=== PATIENT | female | born 1975 | race Caucasian/White ===

== ENCOUNTER → 2017-12-25 19:00 | Outpatient (CLI) | payer OTHER, SELFPAY | PROVIDERS: Visit Provider Family Medicine | DX: N39.0 Urinary tract infection, site not specified (principal) | CPT/HCPCS: 87086; 87088 ==

== ENCOUNTER → 2018-01-07 19:18 | Outpatient (CLI) | payer OTHER, SELFPAY ==
[2018-01-11 10:16] LABS: HPV APTIMA, High Risk Negative (Negative)
== END ==
PROVIDERS: Visit Provider Nurse Practitioner Women's Health
DX: Z12.4 Encounter for screening for malignant neoplasm of cervix (principal)
CPT/HCPCS: 88175; G0145

== ENCOUNTER → 2018-02-06 17:23 | Outpatient (CLI) | payer OTHER, SELFPAY ==
--- NOTE | 2018-02-06 | EMB_PTH ---
PATIENT: NURA ORTIZ LOC: [facility] U#:[id number] AGE/SX: 49/F ROOM: RE02/06/[address]: UNIQUE Conway : 1975 BED: DIS: SPEC #: [id number] RECD: 02/06/18 17:05 STATUS: MAHI CHRIS #: [id number] NELSON: 02/06/18 00:[address]: Jovanna Gutierrez NP DEPT: SURGICAL PATHOLOGY RECD BY: Foster Cornelius Tissues: Endometrium, NOS Procedures: Surgery Specimen Level IV HEADER OPERATION: Endometrial biopsy PRE-OP DIAGNOSIS: Abnormal uterine bleeding TISSUE SUBMITTED: Endometrium MICROSCOPIC DIAGNOSIS Endometrial biopsy: Secretory endometrium. DINORAH:ange 02/10/18 MICROSCOPIC DESCRIPTION Slides are reviewed. GROSS DESCRIPTION Received is one container labeled with the patient's name and not further designated. The specimen consists of multiple irregular fragments of pink-red soft tissue that in aggregate measure 3 x 2.5 x 0.2 cm. The entire specimen is submitted in one cassette. / DINORAH:ange 02/09/18 TC:4 CPT: 76219
== END ==
PROVIDERS: Visit Provider Nurse Practitioner Women's Health
DX: N93.9 Abnormal uterine and vaginal bleeding, unspecified (principal)
CPT/HCPCS: 88305

== ENCOUNTER → 2018-02-11 13:56 | Outpatient (CLI) | payer OTHER, SELFPAY ==
--- NOTE | 2018-02-11 13:58 | BI_ITS ---
MAMMOGRAPHY - BILATERAL SCREENING REASON FOR EXAM: Female, 42 years old. Routine annual screening examination. PERTINENT HISTORY: Non-contributory. Lateral breast tenderness. TECHNIQUE: Digital bilateral breast arsalan (3D mammographic acquisition) in the CC and MLO projections. 2-D mediolateral oblique (MLO) and craniocaudad (CC) views of both breasts were obtained. CAD: Full Field Digital Mammography with Computer Added Detection was performed. COMPARISON: Comparison is made with prior examination in August 01, 2014. FINDINGS: Breast Composition: The breasts are heterogeneously dense, which may obscure small masses. There are no dominant masses or suspicious calcifications. Stable small bilateral benign appearing axillary lymph nodes. No other significant abnormalities are identified. There has been no significant change since the prior study. BI/SCREENING MAMM (CAD), BILAT IMPRESSION: Stable bilateral screening mammogram. Yearly follow-up mammogram recommended. (A) ASSESSMENT CATEGORY: BIRADS Category 2: Benign. A letter regarding these results will be sent to the patient by the facility within 30 days. Approximately 10% of breast cancers are not detected by mammography. A normal mammogram should not delay biopsy of a clinically suspicious abnormality. [id number] Electronically Signed: Kvng Brumfield MD at 8:53 EDT Tel [phone], Service support ,
== END ==
PROVIDERS: PCP Family Medicine; Visit Provider Nurse Practitioner Women's Health
DX: Z12.31 Encounter for screening mammogram for malignant neoplasm of breast (principal)
CPT/HCPCS: 77063; 77067

== ENCOUNTER → 2018-05-13 09:32 | Outpatient (CLI) | payer OTHER, SELFPAY ==
--- NOTE | 2018-05-13 09:34 | US_ITS ---
STUDY: ULTRASOUND BREAST - RIGHT REASON FOR EXAM: Female, 42 years old. Right breast palpable lump. TECHNIQUE: Axial and longitudinal images of the RIGHT breast were performed with a high resolution ultrasound transducer. COMPARISON: No prior breast ultrasound imaging available. Correlation mammograms same day 05/13/2018, 02/11/2018 and 08/01/2014. FINDINGS: RIGHT Breast: There is a lesion in the Upper Outer quadrant. The lesion measures 2.8 x 3.6 x 0.7 cm in size. Clock notation: 9 o'clock position. Distance from nipple: 3.0 cm. Posterior Shadowing: None Margins: Smooth, indistinct Echogenicity: Heterogeneous with slightly increased echogenicity relative adjacent breast tissue adjacent. Compression effect on Shape: No change identified. Minimal internal color Doppler signal is noted. Color Doppler signal is associated vessels along the inferior posterior margin as well. US/Breast Limited Unilateral IMPRESSION: Right breast upper outer quadrant anterior third heterogeneous slightly hyperechoic mass, may represent lipoma but cannot exclude malignancy. Recommend biopsy for further evaluation, should be amenable to ultrasound-guided biopsy as clinically indicated. ASSESSMENT CATEGORY: BIRADS Category 4: Suspicious - Biopsy Should Be Considered. A letter regarding these results will be sent to the patient by the facility within 30 days. Electronically Signed: Alfonso Gentry, at 12:59 EDT Tel , Service support ,
--- NOTE | 2018-05-13 09:40 | BI_ITS ---
MAMMOGRAPHY -DIAGNOSTIC RIGHT MAMMOGRAM REASON FOR EXAM: Female, 42 years old. Right breast palpable lesion x1 month. PERTINENT HISTORY: Right breast lump x1 month with bruising on the surface, marked with triangle. No known injury. TECHNIQUE: Digital diagnostic right breast arsalan (3D mammographic acquisition) in the CC and MLO projections. 2-D mediolateral oblique (MLO) and craniocaudad (CC) views of the right breast were obtained. CAD: Full Field Digital Mammography with Computer Added Detection was performed. COMPARISON: 02/11/2018, 08/01/2014 mammograms. FINDINGS: Breast Composition: The breasts are heterogeneously dense, which may obscure small masses. In the area of clinical concern in the right breast upper outer quadrant anterior third marked by a triangular marker is a set of faint oval somewhat lobulated well-demarcated fairly smooth margin mass densities x2 again seen which appears unchanged but with spot compression views in the CC and ML injections shows persistence. With arsalan synthesis, same lesions are also noted and show smooth lobulated margins. No architectural distortion, asymmetric density, abnormal microcalcification cluster, dominant mass, adenopathy, skin thickening or nipple retraction identified. BI/DIAG MAMM W/CAD, UNILAT IMPRESSION: Incompletely right mammogram. Additional imaging with ultrasound recommended. ASSESSMENT CATEGORY: BIRADS Category 0-additional imaging Approximately 10% of breast cancers are not detected by mammography. A normal mammogram should not delay biopsy of a clinically suspicious abnormality. Electronically Signed: Alfonso Rinaldi, at 13:12 EDT Tel , Service support ,
== END ==
PROVIDERS: PCP Family Medicine; Visit Provider Nurse Practitioner Women's Health
DX: N63.11 Unspecified lump in the right breast, upper outer quadrant (principal)
CPT/HCPCS: 76642; 77061; 77065; G0279

== ENCOUNTER → 2018-05-20 13:35 | Outpatient (CLI) | payer OTHER, SELFPAY ==
--- NOTE | 2018-05-20 | IMM_PTH ---
PATIENT: NURA ORTIZ LOC: [facility] U#:[id number] AGE/SX: 49/F ROOM: RE05/20/[address]: Dr. Chary Christiansen MD : 1975 BED: DIS: SPEC #: [id number] RECD: 05/22/18 14:51 STATUS: MAHI RELilly #: [id number] NELSON: 05/20/18 00:[address]: Chary Christiansen DEPT: IMMUNOHISTOCHEMISTRY RECD BY: Amber Clark ENTERED: 05/22/18 14:52 SP TYPE: IMMUNO OTHR DR: Dr. Jose Roberto Sanchez MD Tissues: Right breast, NOS Procedures: CD31 (initial) SMA (add) CALPONIN-1 (add) CK8 (add) FACTOR VIII (add) [facility] [address] [address] SPECIMEN INFORMATION: Tissue Source: Right breast lesion Clinical Info: Right breast lesion Specimen Number: [id number] CPT code: 69345, 46278 x4 METHODOLOGY: Deparaffinized sections of prefer/formalin-fixed tissue or PAP/DQ stained slides are incubated with monoclonal/polyclonal antibodies/oligonucleotide probes. Localization is made via biotin free immunoperoxidase method. Appropriate controls are performed and reacted as expected. Results on target cell population are indicated in the following table: RESULTS: ANTIBODY / CLONE RESULT CD31 (JOLIE/70A) positive Factor VIII (R Ag) positive Actin (1A4) positive Calponin-1 (HC814J) negative CK8 (68obsbS50) negative These tests were developed and their performance characteristics determined by [facility]. They may not have been cleared or approved by the U.S. Food and Drug Administration. The FDA has determined that such clearance or approval is not necessary. INTERPRETATION: Right breast lesion, biopsy: Benign vascular proliferation consistent with hemangioma. Benign breast parenchyma. SJ:ange 05/25/18
--- NOTE | 2018-05-20 14:00 | BRBX_PTH ---
PATIENT: NURA ORTIZ LOC: [facility] U#:[id number] AGE/SX: 49/F ROOM: RE05/20/[address]: Dr. Chary Christiansen MD : 1975 BED: DIS: SPEC #: [id number] RECD: 05/20/18 15:22 STATUS: MAHI CHRIS #: [id number] NELSON: 05/20/18 14:[address]: Chary Christiansen DEPT: SURGICAL PATHOLOGY RECD BY: Foster Cornelius ENTERED: 05/21/18 10:05 SP TYPE: BREAST BX OTHR DR: Dr. Jose Roberto Sanchez MD Tissues: Right breast, NOS Procedures: Surgery Specimen Level IV HEADER OPERATION: Breast biopsy, right PRE-OP DIAGNOSIS: Breast lesion, ? lipoma or ? hematoma TISSUE SUBMITTED: Breast lesion, right 9 o?clock, 3 cm Ischemic time: 1 minute Fixation time: 5.5 hours MICROSCOPIC DIAGNOSIS Right breast lesion at 9 o?clock, core biopsy: Benign vascular neoplasm, consistent with hemangioma. Focal fat necrosis. Benign breast parenchyma. Negative for malignancy. AM:ange 05/22/18 COMMENT Immunohistochemistry ([id number]) supports the above diagnosis. Correlation with clinical, radiologic findings and appropriate follow up are necessary. This case has been reviewed in consultation with Dr. Cerda who concurs with the above diagnosis. MICROSCOPIC DESCRIPTION Slides are reviewed. GROSS DESCRIPTION Received in fixative is one container labeled with the patient's name and designated right breast. The specimen consists of multiple elongated fragments of brink-yellow fibroadipose tissue that in aggregate measure 2 x 1 x 0.1 cm. The entire specimen is submitted in one cassette. / SJ:ange 05/21/18 TC:1 CPT: 69187
--- NOTE | 2018-05-20 14:26 | PCM.OP.BLANK ---
Operative Report Date of Procedure: 05/20/18 Procedure: ultrasound-guided core biopsy Indications: 42 year-old female with hyperechoic nodule at 9:00 in the right breast 3 centimeters from the nipple, possible lipoma or hematoma. Risk benefits were discussed the patient and she elected to proceed with ultrasound guided core biopsy with clip placement Description of procedure: Patient was brought into the ultrasound room in the right breast was marked. A timeout was completed verifying correct patient, procedure, site, specially, prior to beginning procedure. The right breast was prepped and draped in usual sterile fashion and using local anesthesia was obtained with 1% lidocaine with epi. The lesion was located with the ultrasound. Small incision was made with 11 blade to introduced the mammotome through the skin. Under ultrasound guidance multiple core samples were obtained using then 13-gauge mammotome and sent in formalin for pathology. The mammotome mammostar clip was then deployed into the biopsy cavity under ultrasound guidance and a picture was taken. Upon completion procedure hemostasis was obtained and a Steri-Strip and OpSite were placed. Patient was then taken to the mammography suite for clip verification. The clip was verified. The patient tolerated the procedure well and was discharged from the breast imaging department good condition. complications: none
== END ==
PROVIDERS: Family Provider Family Medicine; PCP Family Medicine; Visit Provider Surgery
DX: N63.11 Unspecified lump in the right breast, upper outer quadrant (principal)
CPT/HCPCS: 19083; 77065; 88305; 88341; 88342

== ENCOUNTER → 2018-09-10 13:38 | Outpatient (CLI) | payer OTHER, SELFPAY ==
--- NOTE | 2018-09-10 13:41 | US_ITS ---
STUDY: RENAL ULTRASOUND - COMPLETE REASON FOR EXAM: Female, 42 years old. Urinary tract infection TECHNIQUE: Ultrasound evaluation of the kidneys was performed with real-time and static merritt-scale imaging. COMPARISON: None. FINDINGS: RIGHT KIDNEY: Normal location of the right kidney, which is normal in size. The right kidney measures 10.5 x 5.3 x 5.6 cm. There is a normal cortex of the right kidney. The renal cortex measures 1.3 cm. There is a 1 cm cyst midpole. There are no right renal calculi. There is no right hydronephrosis. DISTAL RIGHT URETER: There is non-visualization of the distal right ureter. There is no demonstrated right ureterovesical junction calculus. There is a visualized right ureteral jet. LEFT KIDNEY: Normal location of the left kidney, which is normal in size. The left kidney measures 11 x 4.3 x 4.7 cm. There is a normal cortex of the left kidney. The renal cortex measures 1.3 cm. There is a 7 mm cyst in the midpole. There are no left renal calculi. There is no left hydronephrosis. DISTAL LEFT URETER: There is non-visualization of the distal left ureter. There is no demonstrated left ureterovesical junction calculus. There is a visualized left ureteral jet. AORTA: There is no elongation or tortuosity of the abdominal aorta. BLADDER: Urinary bladder volume is 235 cc. Postvoid residual volume is 32 cc. US/Kidney and Bladder IMPRESSION: There bilateral kidney cysts. There are NO stones. There is NO hydronephrosis. Kidneys are normal in size, configuration, location, and echotexture. Electronically Signed: Tenzin Mayberry MD at 7:11 EST , Service support ,
== END ==
PROVIDERS: Family Provider Family Medicine; PCP Family Medicine; Referring Provider Urology; Visit Provider Urology
DX: N39.0 Urinary tract infection, site not specified (principal)
CPT/HCPCS: 76770

== ENCOUNTER → 2019-06-30 07:22 | Outpatient (CLI) | payer OTHER, SELFPAY ==
--- NOTE | 2019-06-30 07:25 | BI_ITS ---
MAMMOGRAPHY - BILATERAL SCREENING REASON FOR EXAM: Female, 43 years old. Routine annual screening examination. PERTINENT HISTORY: Non-contributory. Prior ultrasound-guided right breast biopsy. TECHNIQUE: Digital bilateral breast jai (3D mammographic acquisition) in the CC and MLO projections. 2-D mediolateral oblique (MLO) and craniocaudad (CC) views of both breasts were obtained. CAD: Full Field Digital Mammography with Computer Added Detection was performed. COMPARISON: Comparison is made with prior examination dated February 11, 2018 and May 13, 2018. FINDINGS: Breast Composition: The breasts are heterogeneously dense, which may obscure small masses. There are no dominant masses or suspicious calcifications. A tissue clip marker is seen in the anterior upper lateral portion of the right breast. Stable appearance of the bilateral axillary lymph nodes. No other significant abnormalities are identified. There has been no significant change since the prior study. BI/SCREEN MAMM (CAD) W/JAI BILAT IMPRESSION: Stable bilateral screening mammogram. Yearly follow-up mammogram recommended. (A) ASSESSMENT CATEGORY: BIRADS Category 2: Benign. A letter regarding these results will be sent to the patient by the facility within 30 days. Approximately 10% of breast cancers are not detected by mammography. A normal mammogram should not delay biopsy of a clinically suspicious abnormality. [id number] Electronically Signed: Kvng Brumfield, at 8:59 EDT , Service support ,
== END ==
PROVIDERS: Family Provider Family Medicine; PCP Family Medicine; Referring Provider Nurse Practitioner Women's Health; Visit Provider Nurse Practitioner Women's Health
DX: Z12.31 Encounter for screening mammogram for malignant neoplasm of breast (principal)
CPT/HCPCS: 77063; 77067

== ENCOUNTER 2019-10-29 16:20 | Emergency (ER) | payer OTHER, SELFPAY ==
[2019-10-29 16:21] VITALS: BP 145/66; PULSE 123; RESP 18; TEMP 37.7; O2SAT 100; BMI 40.8
--- NOTE | 2019-10-29 16:47 | ED.VIS.GEN ---
History of Present Illness Chief Complaint: Fever Informant: Patient Onset: Yesterday Narrative: Patient here with skin of her for evaluation fever started yesterday, T-max 100.5 orally this morning. No medications taken. Discussed myalgias. No cough. No vomiting or diarrhea. No urinary symptoms. She is currently being treated for left breast abscess day 6 on Bactrim twice a day. Started urgent care. Denies any pain or drainage states erythema is actually improving started out the size of a silver dollar now much smaller. Denies any asthma history of any significant past medical history. Prior similar symptoms: No Past Medical History - Allergies and Home Meds Allergies/Adverse Reactions: Allergies morphine Allergy (Verified 10/29/19 16:20) Hives Penicillins [PCN] Allergy (Verified 10/29/19 16:20) Unknown Primary Care Physician: German Sanchez MD [Primary Care Provider] - Smoking Status: Current some day smoker Review of Systems General: Reports: Fever. Denies: Chills, Sweats Eyes: Denies: Visual changes - bilaterally, Diplopia ENT: Denies: Rhinorrhea, Sore throat Cardiovascular: Denies: Chest pain, Palpitations Respiratory: Denies: Dyspnea, Cough, Dyspnea on exertion Gastrointestinal: Denies: Abdominal pain, Nausea, Vomiting, Diarrhea, Melena, Hematochezia Genitourinary: Denies: Dysuria, Hematuria, Frequency Musculoskeletal: Denies: Back pain, Extremity Pain Skin: Denies: Rash, Wounds Neurological: Denies: Headache, Weakness, Numbness Physical Exam Vital Signs/Narrative: Vital Signs Temp Pulse Resp BP Pulse Ox 10/29/19 16:21 99.8 F H 123 H 18 145/66 H 100 Inital Vital Signs reviewed: Yes General: Well nourished, Well developed, No Acute Distress Head: Normocephalic, Atraumatic Eyes: Perrl, EOMI ENT: Moist mucous membranes, No rhinorrhea, TM's clear Neck: Supple, Nontender Cardiovascular: Regular rate, Regular rhythm, No murmurs Respiratory: No distress, CTA bilaterally, Chest nontender Abdomen: Soft, Nontender, Nondistended, Normal bowel sounds Back: Nontender, Normal Inspection Extremities: Nontender, No edema Skin: Normal color, No rash, - - Left breast with nursing present, small lesion less than dime size minimal fluctuance, no surrounding erythema or any active drainage, nontender. Neurological: Alert, Oriented x3, Cranial nerves II-XII grossly intact, Normal Strength, Normal Sensation Psychological: Normal affect, Normal Mood Diagnostic/Tx/Re-eval - Medical Decision Making Patient vitals stable, temperature is elevated 99.9. Patient nontoxic. Patient's history reporting her breast significantly improving in size with no surrounding erythema, this is not likely correlating. With the time the year with illnesses discussed possible early influenza symptoms with her symptoms. She has no comorbidities warrant any treatment. Discussed symptomatic treatment at this time. Patient will finish her antibiotics, she will continue oral hydration at home, Tylenol Motrin as needed. All questions were answered. ED Disposition - Plan for ED Patient: Disposition: Home or Assisted Living Diagnosis: Viral illness Instructions: VIRAL SYNDROME (Adult) Referrals: German Sanchez MD [Primary Care Provider] - 3-5 Days if not improving Additional Instructions: Finish your antibiotics, Tylenol and Motrin as needed for fevers. viral syndrome at this time.
[2019-10-29 16:52] VITALS: BP 112/46; PULSE 100; PULSE 102; RESP 16; TEMP 37.7; O2SAT 100; O2SAT 99
[2019-10-29 17:40] VITALS: BP 110/54; PULSE 105; RESP 14; O2SAT 98
== END 2019-10-29 17:43 | disposition home or self-care (01) ==
LOC: ED 17:20
PROVIDERS: Emergency Provider Emergency Medicine; PCP Family Medicine
DX: B34.9 Viral infection, unspecified (principal); R50.9 Fever, unspecified; N61.1 Abscess of the breast and nipple; F17.200 Nicotine dependence, unspecified, uncomplicated; Z88.0 Allergy status to penicillin; Z88.5 Allergy status to narcotic agent
CPT/HCPCS: 99282

== ENCOUNTER 2019-10-31 01:00 | Emergency (ER) | payer OTHER, SELFPAY ==
[2019-10-31 01:02] VITALS: BP 118/59; PULSE 91; RESP 18; TEMP 36.8; O2SAT 97; BMI 41.1
--- NOTE | 2019-10-31 01:11 | ED.VISSUMM ---
- ER Visit Summary Date of Service: 10/31/19 Chief Complaint: Fever History of Present Illness: The patient is a 44 F who presents with a fever that has been constant for the past 3 days. Patient states she was seen here last night and was told she had the beginning of the flu and was discharged. Patient states her fever has been persistent today. Patient states she has increased swelling of the lymph nodes in her neck. Patient describes the pain as dull. Patient states she gets myalgias with her fevers but these are relieved with Tylenol. Patient denies any sore throat or rhinorrhea. Patient denies any cough or shortness of breath. Physical Examination: Vital signs are stable. Patient is afebrile. Patient is in no acute distress. Tympanic membrane's are clear bilaterally. Oral mucosa is pink and moist. Neck is supple. Trachea is midline. There is no JVD. There is tender anterior and posterior cervical lymphadenopathy. Heart was regular rate and rhythm. Lungs are clear and equal bilaterally. Abdomen is soft. Bowel sounds are normal. There is no tenderness. Cranial nerves II through XII are intact. There are no focal motor or sensory deficits. Test Results: CBC shows a white blood cell count of 2.8 with a hemoglobin of 11.6 and hematocrit 36.0. Comprehensive metabolic profile showed a slightly elevated creatinine of 1.15 and a low bilirubin of less than 0.1. Travis test was negative. Rapid strep was negative. Influenza swab was negative. Emergency Department Course and Treatment: Patient was given IV fluids. Patient was feeling better on reevaluation. Patient was advised that this is most likely a viral illness. Patient was instructed to continue Tylenol and ibuprofen as needed for any aches or fevers. Patient was instructed to drink plenty of fluids. Patient was instructed to follow-up with her primary care physician for further evaluation. Patient understood and was agreeable with the plan. All questions were answered. Disposition: Discharge home Impression: Viral illness This note was generated with [employer] dictation software. It may contain incorrect words, spelling, and punctuation that were not noted in review of the chart prior to signing ED Disposition - Plan for ED Patient: Disposition: Home or Assisted Living Diagnosis: Viral illness Instructions: VIRAL SYNDROME (Adult) Referrals: German Sanchez MD [Primary Care Provider] - 5-7 Days
[2019-10-31] MEDS: 0.9% Normal Saline 1,000 ML 1000 ML IV (01:16)
--- NOTE | 2019-10-31 01:20 | RAD_ITS ---
HISTORY: fever x 3 days, cough and sore throat EXAM: XR Chest 2 Views: COMPARISON: None FINDINGS: # of images incl. paperwork: 2 Lungs are clear. Heart is not enlarged. No acute osseous pathology perceived. Pulmonary vascularity is distinct. No effusions. RAD/Chest PA and Lateral IMPRESSION: Normal. at 0216 Reported and signed by: Jorge Luis Quezada MD Electronically Signed: Jorge Luis Quezada MD at 2:15 EST Tel , Service support ,
[2019-10-31 01:53] LABS: Absolute Lymphocyte Count 0.43 X10^3/uL (0.83-4.51); Eosinophil# 0.09 X10^3/uL; Eosinophils% 3.2 % (0-5); Hemoglobin 11.6 g/dL (12.0-15.0); Lymphocyte # 0.43 X10^3/ul (4.0); Lymphocyte % 15.5 % (19-41); Mean Corp Hgb Conc 32.2 g/dL (32-36); Mean Corpuscular Hgb 28.8 pg (27.0-32.0); Mean Corpuscular Volume 89.3 fL (81-99); Mean Platelet Vol. 10.6 fl (6.2-12.0); Monocyte# 0.22 X10^3/uL; Monocyte% 7.9 % (0-10); NRBC Flagged by Analyzer 0 % (0-5); Neutrophil # 1.99 X10^3/uL (2.7-7.7); Neutrophil % 71.6 % (47-70); POSITIVE DIFFERENTIAL YES; Platelet Count 265 K/mm3 (150-450); RBC Distribution Width CV 14.1 % (11.6-14.6); RBC Distribution Width SD 45.7 fl (35.1-43.9); Red Blood Count 4.03 M/mm3 (4.2-5.4); White Blood Count 2.8 K/mm3 (4.4-11.0)
[2019-10-31 01:57] LABS: Differential Indicated SCAN CRITERIA MET
[2019-10-31 02:04] LABS: Internal QC Validated? YES +Cl - CLEAR BKGD; Monotest Negative (Negative)
[2019-10-31 02:07] LABS: ALB/GLOB Ratio 0.9 RATIO (0.9-2.4); AST(SGOT) 18 U/L (15-37); Alanine Aminotransfer ALT/SGPT 28 U/L (13-56); Albumin, Serum 3.2 g/dL (3.2-5.0); Alkaline Phosphatase 86 U/L (45-117); Anion Gap 4 (5-15); BUN 14 mg/dL (7-18); BUN/Creat Ratio 12.2 RATIO (10-20); Calcium,Total 8.8 mg/dL (8.5-10.1); Chloride 110 mmol/L (98-107); Creatinine, Serum 1.15 mg/dL (0.55-1.02); EST Glomerular Filtration Rate 55 mL/min (>60); Est Glom Filt Rate - Afr Amer 67 mL/min (>60); Globulin 3.6 g/dL (2.2-4.2); Glucose 120 mg/dL (74-106); Potassium 3.7 mmol/L (3.5-5.1); Protein, Total 6.8 g/dL (6.4-8.2); Sodium Level 140 mmol/L (136-145); Total Bilirubin < 0.10 mg/dL (0.20-1.00)
[2019-10-31 02:54] VITALS: BP 96/56; PULSE 95; RESP 16; O2SAT 100
[2019-11-01 12:27] LABS: Pathologist Review Reviewed
== END 2019-10-31 02:56 | disposition home or self-care (01) ==
PROVIDERS: Emergency Provider Emergency Medicine; PCP Family Medicine; Referring Provider Family Medicine
DX: B34.9 Viral infection, unspecified (principal); R50.9 Fever, unspecified; M54.2 Cervicalgia; R51 Headache; M79.10 Myalgia, unspecified site; E66.9 Obesity, unspecified
CPT/HCPCS: 71046; 80053; 85025; 86308; 87804; 87880; 96360; 96361; 99283; J7030; A4216

== ENCOUNTER → 2020-04-24 16:58 | Outpatient (CLI) | payer OTHER, SELFPAY ==
--- NOTE | 2020-04-24 17:00 | RAD_ITS ---
STUDY: X-RAY CHEST REASON FOR EXAM: Female, 44 years old. COVID 19 positive. Chest tightness. Difficulty with deep inspiration. TECHNIQUE: PA and lateral views of the chest. COMPARISON: October 31, 2019. FINDINGS: There are patchy infiltrates in both lungs. These appear to involve the lingula and right middle lobe. There is no demonstrated pleural abnormality. Normal size heart. Normal mediastinum and flor. Normal visualized pulmonary arteries. Normal visualized aortic arch and descending thoracic aorta. Normal visualized thoracic spine. Normal visualized ribs, clavicles, and shoulders. There is no demonstrated abnormality of the visualized soft tissue structures of the upper abdomen. RAD/Chest PA and Lateral IMPRESSION: Right middle lobe and lingular infiltrates. Electronically Signed: Ramu Golden DO at 17:47 EDT Tel [phone], Service support ,
== END ==
LOC: RAD.FUTURE 16:58 → MTRAD 16:59
PROVIDERS: PCP Family Medicine; Referring Provider Family Medicine; Visit Provider Family Medicine
DX: U07.1 COVID-19 (principal)
CPT/HCPCS: 71046

== ENCOUNTER → 2020-05-16 08:25 | Outpatient (CLI) | payer OTHER, SELFPAY ==
[2020-05-16 09:47] LABS: Color, Urine Yellow (Yellow); Erythrocyte Sedimentation Rate 38 mm/hr (0-20); Glucose, Dipstick Normal (Normal); Ketone-Dipstick 5 mg/dl (Negative); Leukocyte Esterase-Dipstick 25 /ul (Negative); Nitrite-Dipstick Negative (Negative); Occult Blood-Urine Negative /ul (Negative); Protein-Dipstick 30 mg/dl (Negative); Specific Gravity, Urine 1.025 (1.002-1.030); Urine Bilirubin Dipstick Negative (Negative); Urine Clarity Sl. Cloudy (Clear); Urine Urobilinogen 1 mg/dl (Normal)
[2020-05-16 09:49] LABS: Absolute Lymphocyte Count 2.08 X10^3/uL (0.83-4.51); Absolute Neutrophil Count 5.5 X10^3/uL (2.0-7.7); Basophil# 0.04 X10^3/uL; Basophil% 0.5 % (0-1); Eosinophil# 0.08 X10^3/uL; Hematocrit 37.6 % (37-47); Lymphocyte # 2.08 X10^3/ul (4.0); Mean Corp Hgb Conc 31.9 g/dL (32-36); Mean Corpuscular Hgb 29.7 pg (27.0-32.0); Mean Corpuscular Volume 93.1 fL (81-99); Mean Platelet Vol. 11.1 fl (6.2-12.0); Monocyte# 0.57 X10^3/uL; Monocyte% 6.9 % (0-10); NRBC Flagged by Analyzer 0 % (0-5); Neutrophil # 5.51 X10^3/uL (2.7-7.7); Neutrophil % 66.1 % (47-70); Platelet Count 350 K/mm3 (150-450); RBC Distribution Width CV 14.6 % (11.6-14.6); RBC Distribution Width SD 49.3 fl (35.1-43.9); Red Blood Count 4.04 M/mm3 (4.2-5.4); White Blood Count 8.3 K/mm3 (4.4-11.0)
[2020-05-16 10:03] LABS: Hemoglobin A1c 5.7 % (3.8-5.6)
[2020-05-16 10:25] LABS: ALB/GLOB Ratio 0.8 RATIO (0.9-2.4); AST(SGOT) 26 U/L (15-37); Alanine Aminotransfer ALT/SGPT 33 U/L (13-56); Albumin, Serum 3.4 g/dL (3.2-5.0); Alkaline Phosphatase 75 U/L (45-117); Anion Gap 8 (5-15); BUN 10 mg/dL (7-18); BUN/Creat Ratio 13.5 RATIO (10-20); Calcium,Total 8.6 mg/dL (8.5-10.1); Chloride 105 mmol/L (98-107); Creatinine, Serum 0.74 mg/dL (0.55-1.02); EST Glomerular Filtration Rate 91 mL/min (>60); Est Glom Filt Rate - Afr Amer 111 mL/min (>60); Globulin 4.1 g/dL (2.2-4.2); Glucose 107 mg/dL (74-106); Iron 55 ug/dL (50-170); Potassium 3.7 mmol/L (3.5-5.1); Protein, Total 7.5 g/dL (6.4-8.2); Sodium Level 139 mmol/L (136-145); Thyroid Stim Hormone (TSH) 1.26 uIU/mL (0.358-3.74)
[2020-05-16 11:11] LABS: Vitamin B12 715 pg/mL (211-911); Vitamin D,25 Hydroxy 20.8 ng/mL
== END ==
PROVIDERS: PCP Family Medicine; Referring Provider Family Medicine; Visit Provider Family Medicine
DX: R53.83 Other fatigue (principal); R73.01 Impaired fasting glucose
CPT/HCPCS: 36415; 80053; 81002; 82306; 82533; 82607; 83036; 83540; 84443; 85025; 85652

== ENCOUNTER → 2020-06-09 14:09 | Outpatient (CLI) | payer OTHER, SELFPAY ==
[2020-06-10 07:10] LABS: SARS-COV-2 TOTAL ABS Reactive (Nonreactive)
== END ==
PROVIDERS: PCP Family Medicine; Referring Provider Family Medicine; Visit Provider Family Medicine
DX: Z20.828 Contact with and (suspected) exposure to other viral communicable diseases (principal)
CPT/HCPCS: 36415; 86769

== ENCOUNTER → 2020-06-21 11:52 | Outpatient (CLI) | payer OTHER, SELFPAY ==
[2020-06-21 11:24] VITALS: BMI 41.1
[2020-06-21 17:19] LABS: Chlamydia Trachomatis by PCR Negative (Negative); Neisserai gonorrhoeae by PCR Negative (Negative); Probe Check PASS; Sample Adequacy Control PASS; Specimen Processing Control PASS
[2020-06-22 04:31] LABS: Rapid Plasmin Reagin (RPR) NONREACTIVE (NONREACTIVE)
[2020-06-22 10:10] LABS: HIV - WCH Non-Reactive (Nonreactive); Hepatitis C Antibody Non-Reactive (Nonreactive)
[2020-06-23 08:39] LABS: HSV 2 IgG < 0.91 index (0.00-0.90)
[2020-06-27 04:09] LABS: Chlamydia By Nucleic Acid AMP Negative (Negative)
[2020-06-27 10:27] LABS: Gonococcus By Nucleic Acid AMP Negative (Negative)
== END ==
PROVIDERS: PCP Family Medicine; Referring Provider Family Medicine; Visit Provider Nurse Practitioner Women's Health
DX: Z11.3 Encounter for screening for infections with a predominantly sexual mode of transmission (principal)
CPT/HCPCS: 36415; 86592; 86695; 86696; 86703; 86803; 87491; 87522; 87591

== ENCOUNTER → 2020-07-07 12:19 | Outpatient (CLI) | payer OTHER, SELFPAY ==
[2020-06-21 11:24] VITALS: BMI 41.1
--- NOTE | 2020-07-07 12:19 | BI_ITS ---
MAMMOGRAPHY - BILATERAL SCREENING REASON FOR EXAM: Female, 44 years old. Routine annual screening examination. PERTINENT HISTORY: Non-contributory. TECHNIQUE: Digital bilateral breast jai (3D mammographic acquisition) in the CC and MLO projections. 2-D mediolateral oblique (MLO) and craniocaudad (CC) views of both breasts were obtained. CAD: Full Field Digital Mammography with Computer Added Detection was performed. COMPARISON: Comparison is made with prior examination dated 06/30/2019 and 05/13/2018 FINDINGS: Breast Composition: The breasts are heterogeneously dense, which may obscure small masses. There are no dominant masses or suspicious calcifications. A tissue clip marker is once again seen in the anterior upper lateral portion of the right breast. No other significant abnormalities are identified. There has been no significant change since the prior study. BI/SCREEN MAMM (CAD) W/JAI BILAT IMPRESSION: Stable bilateral screening mammogram. Yearly follow-up mammogram recommended. (A) ASSESSMENT CATEGORY: BIRADS Category 2: Benign. A letter regarding these results will be sent to the patient by the facility within 30 days. Approximately 10% of breast cancers are not detected by mammography. A normal mammogram should not delay biopsy of a clinically suspicious abnormality. [id number] Electronically Signed: Kvng Brumfield, at 13:30 EDT , Service support ,
== END ==
PROVIDERS: PCP Family Medicine; Referring Provider Nurse Practitioner Women's Health; Visit Provider Nurse Practitioner Women's Health
DX: Z12.31 Encounter for screening mammogram for malignant neoplasm of breast (principal)
CPT/HCPCS: 77063; 77067

== ENCOUNTER → 2020-10-02 | Outpatient (CLI) | payer OTHER, SELFPAY ==
[2020-09-21 14:17] VITALS: BMI 36.8
[2020-10-03 07:40] LABS: SARS-COV-2 TOTAL ABS Reactive (Nonreactive)
== END | disposition home or self-care (01) ==
LOC: MFPLAB 09:17
PROVIDERS: PCP Family Medicine; Visit Provider Family Medicine
DX: U07.1 COVID-19 (principal)
CPT/HCPCS: 36415; 86769

== ENCOUNTER → 2020-11-15 10:03 | Outpatient (CLI) | payer OTHER, SELFPAY ==
[2020-10-25 13:59] VITALS: BMI 37.0
--- NOTE | 2020-11-15 10:04 | US_ITS ---
STUDY: ULTRASOUND OF THE FEMALE PELVIS - COMPLETE REASON FOR EXAM: Female, 45 years old. IRREGULAR MENSES LMP: 11/06/2020. TECHNIQUE: Transabdominal and Transvaginal TECHNICAL QUALITY: Adequate. COMPARISON: None. FINDINGS: The uterus is anteverted and is in a midline position. The uterus measures 7.8 cm x 5.7 cm x 3.7 cm. Normal uterine cervix. There is evidence of a septated uterus. The endometrium measures 9.5 mm in thickness, and is heterogeneous (striated). There is no demonstrated endometrial mass. There is no demonstrated myometrial mass. I.U.D. - The patient does not have an I.U.D. The right ovary is visualized. The right ovary measures 2.1 cm x 2.2 cm x 1.7 cm. There is no right ovarian cyst or ovarian mass. There is no visualized right adnexal mass or complex lesion. There is normal arterial and normal venous vascularity. The left ovary is visualized. The left ovary measures 4.4 cm x 1.7 cm x 1.7 cm. There is a 2.6 cm x 1.6 cm x 2.5 cm left ovarian cyst. There is no visualized left adnexal mass or complex lesion. There is normal arterial and normal venous vascularity. There is minimal fluid in the cul-de-sac. The pre void volume of the bladder was 87 ml. Polycystic ovary disease: No. US/Transvaginal Non- IMPRESSION: Septated uterus. Left ovarian cyst measuring 2.6 cm x 1.6 cm x 2.5 cm. Electronically Signed: Kvng Brumfield MD at 11:38 EST , Service support ,
--- NOTE | 2020-11-15 10:04 | US_ITS ---
STUDY: ULTRASOUND OF THE FEMALE PELVIS - COMPLETE REASON FOR EXAM: Female, 45 years old. IRREGULAR MENSES LMP: 11/06/2020. TECHNIQUE: Transabdominal and Transvaginal TECHNICAL QUALITY: Adequate. COMPARISON: None. FINDINGS: The uterus is anteverted and is in a midline position. The uterus measures 7.8 cm x 5.7 cm x 3.7 cm. Normal uterine cervix. There is evidence of a septated uterus. The endometrium measures 9.5 mm in thickness, and is heterogeneous (striated). There is no demonstrated endometrial mass. There is no demonstrated myometrial mass. I.U.D. - The patient does not have an I.U.D. The right ovary is visualized. The right ovary measures 2.1 cm x 2.2 cm x 1.7 cm. There is no right ovarian cyst or ovarian mass. There is no visualized right adnexal mass or complex lesion. There is normal arterial and normal venous vascularity. The left ovary is visualized. The left ovary measures 4.4 cm x 1.7 cm x 1.7 cm. There is a 2.6 cm x 1.6 cm x 2.5 cm left ovarian cyst. There is no visualized left adnexal mass or complex lesion. There is normal arterial and normal venous vascularity. There is minimal fluid in the cul-de-sac. The pre void volume of the bladder was 87 ml. Polycystic ovary disease: No. US/Pelvic (Non ) IMPRESSION: Septated uterus. Left ovarian cyst measuring 2.6 cm x 1.6 cm x 2.5 cm. Electronically Signed: Kvng Brumfield MD at 11:38 EST , Service support ,
== END ==
PROVIDERS: PCP Family Medicine; Referring Provider Nurse Practitioner Women's Health; Visit Provider Nurse Practitioner Women's Health
DX: N92.6 Irregular menstruation, unspecified (principal)
CPT/HCPCS: 76830; 76856

== ENCOUNTER → 2020-12-19 08:34 | Outpatient (CLI) | payer OTHER, SELFPAY ==
[2020-10-25 13:59] VITALS: BMI 37.0
[2020-12-19 10:36] LABS: HIV - WCH Non-Reactive (Nonreactive); Hepatitis C Antibody Non-Reactive (Nonreactive)
== END ==
PROVIDERS: PCP Family Medicine; Referring Provider Nurse Practitioner Women's Health; Visit Provider Nurse Practitioner Women's Health
DX: Z11.3 Encounter for screening for infections with a predominantly sexual mode of transmission (principal)
CPT/HCPCS: 36415; 86703; 86803

== ENCOUNTER → 2021-01-24 11:15 | Outpatient (CLI) | payer OTHER, SELFPAY ==
[2020-10-25 13:59] VITALS: BMI 37.0
[2021-01-24 13:18] LABS: Probe Check PASS; Specimen Processing Control PASS
== END ==
PROVIDERS: PCP Family Medicine; Visit Provider Family Medicine
DX: J02.9 Acute pharyngitis, unspecified (principal); Z20.822 Contact with and (suspected) exposure to COVID-19
CPT/HCPCS: 87426; 87633; 87635; U0002

== ENCOUNTER → 2021-04-09 06:53 | Outpatient (REF) | payer OTHER, SELFPAY ==
[2020-10-25 13:59] VITALS: BMI 37.0
[2021-04-09 07:01] LABS: Absolute Neutrophil Count 6.3 X10^3/uL (2.0-7.7); Basophil# 0.04 X10^3/uL; Basophil% 0.4 % (0-1); Eosinophil# 0.12 X10^3/uL; Eosinophils% 1.2 % (0-5); Hematocrit 39.1 % (37-47); Hemoglobin 12.7 g/dL (12.0-15.0); Mean Corp Hgb Conc 32.5 g/dL (32-36); Mean Corpuscular Hgb 30.2 pg (27.0-32.0); Mean Corpuscular Volume 93.1 fL (81-99); Mean Platelet Vol. 10.5 fl (6.2-12.0); Monocyte# 0.55 X10^3/uL; Monocyte% 5.5 % (0-10); NRBC Flagged by Analyzer 0 % (0-5); Neutrophil # 6.34 X10^3/uL (2.7-7.7); Neutrophil % 63.5 % (47-70); Platelet Count 436 K/mm3 (150-450); RBC Distribution Width CV 13.4 % (11.6-14.6); RBC Distribution Width SD 45.6 fl (35.1-43.9)
[2021-04-09 07:02] LABS: Color, Urine Yellow (Yellow); Glucose, Dipstick Normal (Normal); Ketone-Dipstick Negative (Negative); Leukocyte Esterase-Dipstick 25 /ul (Negative); Nitrite-Dipstick Negative (Negative); Occult Blood-Urine 10 /ul (Negative); Protein-Dipstick Negative (Negative); Urine Bilirubin Dipstick Negative (Negative); Urine Clarity Clear (Clear); Urine Urobilinogen Normal (Normal)
[2021-04-09 08:09] LABS: AST(SGOT) 14 U/L (15-37); Alanine Aminotransfer ALT/SGPT 21 U/L (13-56); Albumin, Serum 3.5 g/dL (3.2-5.0); Alkaline Phosphatase 73 U/L (45-117); Anion Gap 5 (5-15); BUN 12 mg/dL (7-18); BUN/Creat Ratio 14.6 RATIO (10-20); Bilirubin, Direct 0.12 mg/dL (0.00-0.30); Calcium,Total 8.4 mg/dL (8.5-10.1); Chloride 106 mmol/L (98-107); Cholesterol 180 mg/dL (200); Creatinine, Serum 0.82 mg/dL (0.55-1.02); EST Glomerular Filtration Rate 81 mL/min (>60); Est Glom Filt Rate - Afr Amer 98 mL/min (>60); Globulin 3.5 g/dL (2.2-4.2); Glucose 98 mg/dL (74-106); High Density Lipoprotein 58 mg/dL; LDH 135 U/L (84-246); Potassium 3.5 mmol/L (3.5-5.1); Sodium Level 139 mmol/L (136-145); Triglycerides 76 mg/dL; Uric Acid 4.8 mg/dL (2.6-6.0); Very Low Density Lipoprotein 15 mg/dL (5-40)
== END ==
LOC: LAB 06:53
PROVIDERS: PCP Family Medicine
DX: Z00.00 Encounter for general adult medical examination without abnormal findings (principal)

== ENCOUNTER → 2021-05-01 10:35 | Outpatient (CLI) | payer OTHER, SELFPAY ==
[2021-04-27 10:13] VITALS: BMI 41.1
[2021-05-01 13:09] LABS: Magnesium 2.2 mg/dL (1.6-2.6)
== END ==
PROVIDERS: Anesthesiology; PCP Family Medicine; Referring Provider Family Medicine; Visit Provider Family Medicine
DX: Z01.818 Encounter for other preprocedural examination (principal)
CPT/HCPCS: 36415; 83735

== ENCOUNTER 2021-05-02 15:56 | Observation (INO) | payer OTHER, SELFPAY ==
[2020-10-25 13:59] VITALS: BMI 37.0
[2021-04-27 10:13] VITALS: BMI 41.1
--- NOTE | 2021-05-01 09:52 | EKG12_ITS ---
Test Reason : PREOP Blood Pressure : / mmHG Vent. Rate : 089 BPM Atrial Rate : 089 BPM P-R Int : 148 ms QRS Dur : 082 ms QT Int : 368 ms P-R-T Axes : 039 045 036 degrees QTc Int : 447 ms Normal sinus rhythm Normal ECG Confirmed by JENNIFER HARRISON, CHARLIE ([id number]), editorial intern DUSTIN HONG ([id number]) on 05/02/2021 1:17:16 PM Referred By: Faizan Ruiz Confirmed By:CHARLIE RODRIGUEZ MD
[2021-05-02] VITALS (14 sets, daily range): BP systolic 85–111; BP diastolic 37–70; PULSE 80–105; RESP 16–18; TEMP 36.2–37.3; O2SAT 93–100; BMI 34.2
--- NOTE | 2021-05-02 | MAM_PTH ---
PATIENT: NURA ORTIZ LOC: [facility] U#:[id number] AGE/SX: 45/F ROOM: TX314 RE05/02/[address]: Dr. Faizan Ruiz MD : 1975 BED: 1 DIS: 05/03/2021 SPEC #: [id number] RECD: 05/02/21 15:09 STATUS: MAHI RELilly #: [id number] NELSON: 05/02/21 00:[address]: Faizan Ruiz DEPT: SURGICAL PATHOLOGY RECD BY: Leo Prather ENTERED: 05/03/21 07:53 SP TYPE: MAMOPLASTY OTHR DR: Dr. Jose Roberto Sanchez MD Tissues: A - Left breast, NOS B - Right breast, NOS Procedures: Surgery Specimen Level IV HEADER OPERATION: ERAS, breast reduction mammoplasty PRE-OP DIAGNOSIS: Bilateral macromastia; neck and thoracic back pain TISSUE SUBMITTED: A ? Left breast tissue, B ? Right breast tissue MICROSCOPIC DIAGNOSIS A. Left breast tissue, breast reduction mammoplasty: Fragments of benign breast tissue (653 gm). Focal fibrocystic changes and intraductal hyperplasia without atypia. Focal microcalcifications. Skin, no pathologic diagnosis. B. Right breast tissue, breast reduction mammoplasty: Fragments of benign breast tissue (658 gm). Fibroadenoma (1 cm in diameter). Focal fibrocystic changes, adenosis and intraductal hyperplasia without atypia. Focal microcalcifications. Skin, no pathologic diagnosis. DINORAH:ange 05/04/2021 MICROSCOPIC DESCRIPTION Slides are reviewed. GROSS DESCRIPTION A - Received in fixative is one container labeled with the patient's name and designated left breast tissue. The specimen consists of multiple irregular fragments of fibroadipose tissue with a few of the pieces showing brink-white skin and also detached piece of brink-white skin weighing in aggregate 653 gm and measuring in aggregate 23 x 19 x 5 cm. Sections reveal brink-yellow adipose cut surfaces mixed with brink-white fibrous areas. No mass lesion is identified. Junior Network Administrator sections are submitted in six cassettes. Cassette 6 also contains the skin piece. B - Received in fixative is one container labeled with the patient's name and designated right breast tissue. The specimen consists of multiple irregular fragments of fibroadipose tissue with a few of the pieces showing brink-white skin and also detached piece of brink-white skin weighing in aggregate 658 gm and measuring in aggregate 23 x 19 x 5 cm. Sections reveal brink-yellow adipose cut surfaces mixed with brink-white fibrous areas and a brink, solid nodule measuring 1 cm in diameter. Junior Network Administrator sections are submitted in six cassettes. Cassettes 3 & 4 contain the entire brink nodule and cassette 6 contains the skin piece. / DINORAH:ange 05/03/21 TC:5 CPT: 60548 x2
--- NOTE | 2021-05-02 | PCM.HP.BLA ---
History and Physical Date of Admission: 05/02/21 HISTORY OF PRESENT ILLNESS 45 year old woman presents with complaints of bilateral macromastia as well as associated painful symptomatology of neck pain, thoracic back pain, bilateral shoulder pain from shoulder grooving from the weight of her breasts on her bra straps, and inframammary intertrigo for which she uses powders for relief. She denies any trauma to her breasts. Denies any nipple discharge. She denies seeing physical therapist or chiropractor for her neck and back pain She has a positive family history of breast cancer. She has had a 20 lb intentional weight loss over the past year. Her last mammogram was 07/07/20 which showed The breasts are heterogeneously dense, which may obscure small masses. There are no dominant masses or suspicious calcifications. A tissue clip marker is once again seen in the anterior upper lateral portion of the right breast. There has been no significant changes from since prior study. We have received medical approval for the surgery which is tentatively scheduled for 05/02/21. She presents at this time to answer any last minute preop questions and to sign her office consent. PAST MEDICAL HISTORY Abnormal mammogram of right breast Abnormal Pap smear of cervix Alcohol use Anxiety Breast lump in female Chronic neck pain Chronic thoracic back pain Depression Gastric reflux GERD (gastroesophageal reflux disease) Intertrigo Kidney stones Macromastia Shoulder pain Smoker Vitamin D deficiency Wears glasses PAST SURGICAL HISTORY cholecystectomy dilation and curettage ALLERGIES morphine Penicillins [PCN] MEDICATIONS mecobalamin (vitamin B12) diazepam FAMILY HISTORY Mother - Hypertension, Diabetes, Hyperlipidemia Father - Hypertension, Diabetes, Hyperlipidemia Sister - Diabetes Grandfather - Colon cancer Other - Alcohol abuse, Anxiety, Cancer, Cervical cancer, Depression, Heart disease, High cholesterol SOCIAL HISTORY Smoking Status: Current every day smoker tobacco type: e-cigarettes alcohol intake: current alcohol intake frequency: holidays/special occasions only substance use type: does not use REVIEW OF SYSTEMS General - Denies fever, fatigue. She has had an intentional 20 lb weight loss. Eyes - Denies cataracts and glaucoma. ENT - Denies nasal congestion and sore throat. Endocrine - Denies excessive thirst and urination. Skin - Denies suspicious lesions and skin cancer. Has inframammary intertrigo for which she uses powders for relief. History of breast lump biopsy. Musculoskeletal - She has chronic neck and thoracic back pain. Denies any muscle weakness Neuro - Denies headaches. Cardiovascular - Denies chest pain, fatigue, and shortness of breath with exertion. Psych - Denies anxiety and depression. Respiratory - Denies chronic cough and shortness of breath. Gastrointestinal - Denies nausea, vomiting, diarrhea, and constipation. Has a history of gallstones and having had her gallbladder removed and a history of GERD. Hematologic - Denies abnormal bruising and bleeding. Genitourinary - Denies hematuria and urinary frequency. History of kidney stones. PHYSICAL EXAMINATION General - Alert and oriented. Patient's bra size is DD. HEENT - PERRL. EOMI. Throat is clear. Neck - Supple. No bony tenderness. There is some pericervical soft tissue tenderness. Lungs- Clear to auscultation. Heart - Regular rate and rhythm. Breasts - Patient has bilateral macromastia. No breast masses palpable. No axillary adenopathy noted. Distance from midclavicular line on the left to the nipple is 34 cm and from the nipple to the inframammary fold is 14 cm. Distance from midclavicular line on the right to the nipple is 34 cm and from nipple to the inframammary fold is 13 cm. Nipple areolar complex diameter is 7 cm bilaterally. No active inframammary intertrigo noted at this time. Abdomen - Soft and non distended. Back - No bony tenderness noted. There is perivertebral soft tissue tenderness in the upper thoracic area. Extremities - FROM. No axillary adenopathy. Radial pulses are palpable. There is some bilateral shoulder tenderness with shoulder grooving from the weight of her breasts on her bra straps. Neuro - CN II-XII grossly intact. Psych - Normal and mood and affect. ASSESSMENT 1. Bilateral macromastia. 2. Neck pain. 3. Thoracic back pain. 4. Bilateral shoulder pain from shoulder grooving from the weight of the breasts on her bra straps. 5. Inframammary intertrigo. 6. Family history of breast cancer. 7. Smoker. PLAN Discussed with the patient the procedure of breast reduction mammoplasty. I feel this procedure would be beneficial in this patient as it would help relieve her painful symptomatology. We have received medical approval for the surgery which is tentatively scheduled for 05/02/21. Patient had a mammogram on 07/07/20 which showed The breasts are heterogeneously dense, which may obscure small masses. There are no dominant masses or suspicious calcifications. A tissue clip marker is once again seen in the anterior upper lateral portion of the right breast. There has been no significant changes from since prior study. Postoperatively, she would get a breast reduction baseline mammogram at some point. I would remove approximately 500 grams of breast tissue per side. We will send the tissue to pathology for analysis to rule out carcinoma. Discussed with patient the extent of scarring for this procedure. The biggest risk for wound healing problems is the T-zone area. Usually wound care and sometimes antibiotics are necessary for healing in this area. She would have drains in for a few days depending on the amount of tissue that is removed. She will be on antibiotics until the drains are removed. In general, the final breast size ranges from a high B to low C cup. If possible, she would like to be a low C cup. Surgery will be done under general anesthesia with a surgical observation overnight stay in the hospital. Patient was informed of the risks and complications of the procedure including alternatives to surgery. These were discussed with her personally. She voices understanding and wishes to proceed. Some of the risks and complications were included in a form from the [employer]. Encouraged patient to stop smoking as it may have deleterious effects on wound healing. She had last minute questions regarding the surgery that were answered personally and to her satisfaction. The office consent was signed. SHE STATES SHE GETS NERVOUS BEFORE SURGERY AND HAS TROUBLE SLEEPING. WILL WRITE SCRIPT FOR 5 VALIUM TABS TO BE TAKEN AT NIGHT PREOPERATIVELY STARTING 5 DAYS PRIOR TO SURGERY. We discussed the current risks associated with COVID-19. While it is understood that there is a community spread of COVID-19, the risk of rojelio COVID-19 while at [facility] ([facility]) is very low; however, the risk cannot be completely mitigated because of the community spread of the disease. We discussed in detail the risk of exposure to and/or potential harm posed by the COVID-19 virus with having a surgery/procedure at this time versus the risk of delaying the surgery/procedure. It is not possible to know either the risk of delaying the surgery or procedure or chance of getting an infection with perfect accuracy, but a joint decision was made to proceed at this time with the scheduled surgery/procedure as indicated on the consent form. Patient was notified that we will need to comply with any screening or testing WC wishes to perform or that surgery may be delayed for any positive results.
[2021-05-02 06:50] LABS: Internal QC Validated? YES +Cl - CLEAR BKGD; Pregnancy, Urine Negative Negative
[2021-05-02 07:00] LABS: Bedside Glucose 69 mg/dL (70-110)
[2021-05-02] MEDS: Acetaminophen 500 MG Tablet 1000 MG PO ×3 (07:18→23:31)
[2021-05-02] MEDS: Lactated Ringers 1,000 ML 40 ML IV (07:19)
[2021-05-02] MEDS: Gabapentin 600 MG Tablet PO (07:19)
[2021-05-02 07:22] LABS: Magnesium 2.2 mg/dL (1.6-2.6)
[2021-05-02] MEDS: Scopolamine 1mg/72hr Patch 1 PATCH TD (07:27)
[2021-05-02] MEDS: Lactated Ringers 1,000 ML 100 ML IV ×2 (08:30→14:30)
[2021-05-02] MEDS: Lidocaine 1% /Epi 1:100 (50ml) 50 ML VIAL (09:10)
[2021-05-02 11:30] LABS: Bedside Glucose 123 mg/dL (70-110)
--- NOTE | 2021-05-02 15:32 | OP.PCM_ITS ---
Problems Associated Problem List Diagnoses (1) Macromastia: (2) Chronic neck pain: (3) Chronic thoracic back pain: (4) Shoulder pain: (5) Intertrigo: (6) Family history of breast cancer: (7) Smoker: Report of Operation Date of Procedure: 05/02/21 Pre-Operative Diagnosis: 1. Bilateral macromastia. 2. Chronic neck pain. 3. Chronic thoracic back pain. 4. Bilateral shoulder pain from shoulder grooving from the weight of her breasts on her bra strap. 5. Inframammary intertrigo. 6. Family history of breast cancer. 7. Smoker. Post-Operative Diagnosis: Same. Surgery/Procedure Performed:: Bilateral breast reduction mammaplasty. Description of Surgical Findings:: 45 year old woman presents with complaints of bilateral macromastia as well as associated painful symptomatology of neck pain, thoracic back pain, bilateral shoulder pain from shoulder grooving from the weight of her breasts on her bra straps, and inframammary intertrigo for which she uses powders for relief. She denies any trauma to her breasts. Denies any nipple discharge. She denies seeing physical therapist or chiropractor for her neck and back pain She has a positive family history of breast cancer. She has had a 20 lb intentional weight loss over the past year. Her last mammogram was 07/07/20 which showed The breasts are heterogeneously dense, which may obscure small masses. There are no dominant masses or suspicious calcifications. A tissue clip marker is once again seen in the anterior upper lateral portion of the right breast. There has been no significant changes from since prior study. We have received medical approval for the surgery. Patient was informed of the risks and complications of the procedure including alternatives to surgery. These were discussed with the patient personally. Patient voices understanding and wishes to proceed. Some of the risks and complications were included in a form from the [employer]. Potential risks and complications included but not inclusive of bleeding, infection, seroma, hematoma, bruising, swelling, prolonged need for drains, loss of sensation to skin, partial or complete loss of skin flap and/or nipple, wound breakdown, need for wound care, poor scarring, poor aesthetic outcome, intra operative cardiac or neurologic events, DVT, PE, and reaction to anesthesia. Encouraged patient to stop smoking as it may have deleterious effects on wound healing. Tissue removed from the left breast - 612 grams. Tissue removed from the right breast - 626 grams. I used AmnioFix Placental Connective Tissue Graft into each breast at the Tzone area. Catalog Number - [id number]. Lot Number - [id number]. Expiration - February 03, 2026, (left breast). Catalog Number - [id number]. Lot Number - [id number]. Expiration - December 04, 2025, (right breast). I used Jeanette absorbable hemostat, (I used 4 vials, 2 in each breast). Reference Number - [id number]. Lot Number - [id number]. Expiration - January 31, 2026. 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 Left breast tissue to Pathology. 2. Right breast tissue to Pathology. Drains: Zhao x2, (one in each breast). Estimated Blood Loss (mL): 250. Description of Procedure: In the preop area, the patient was placed in the sitting position and preoperative markings were made. The sternum midline was marked down to the umbilicus. The inframammary folds were marked bilaterally. The midclavicular line was then marked down to the nipple, then from the nipple to the inframammary fold. The inframammary fold was then superimposed on the midclavicular line and I made a point 1 cm below that to be the new position of the nipple-areolar complex. 7 cm lines were then drawn divergent from that point to encompass the nipple-areolar complex. The distance between the divergent lines was 10 cm. The patient was then placed in the supine position and taken to the operating room and placed under general anesthesia and her breasts were prepped and draped in usual fashion. Ioban draping was also used. SCDs were placed for DVT prophylaxis. Perioperative antibiotics were given intravenously. A Patel catheter was also placed. I then vasu straight lines down from the lines drawn divergent around the nipple-areolar complex down to the inframammary fold. The width of the pedicle is 10 cm. I then used a 42 mm circular template for a new size of the nipple-areolar complex. The central markings were infiltrated with Xylocaine and epinephrine. The central skin was then deepithelialized. I started on the left side first and then went to the right side. I then mobilized medial and lateral breast flaps at the level of Randall's fascia down to about 1-2 cm from the chest wall. This was met in the midline of the breast with dissection at the level of Randall's fascia down to a bout 1-2 cm from the chest wall. Once the central breast mound pedicle was from the skin envelope, the reduction was then begun. Most of the tissue was removed from the superior aspect of the breast and the lateral aspect of the breast. On the lateral aspect of the right breast, there was some fibrous tissue that looked benign. Patient stated a metallic clip was placed in the area to allow close monitoring with imaging studies. I saw the metallic clip in the lateral fibrous tissue and excised it with the rest of the right breast specimen. I then sutured the leading edge of the medial and lateral breast flaps to the midline of the inframammary fold with 2-0 Vicryl suture. The vertical incision was approximated using surgical clips. The excess tissue from the medial and lateral breast flaps were excised and the horizontal incision was approximated using surgical clips. The patient was then placed in a sitting position. Using a vertical limb length of 4.5 cm, I vasu the new position of the new nipple-areolar complexes on both breasts. They were in good position on the central aspect of the breast mound. Good symmetry was noted between the left breast and the right breast. Good shape and contour and projection was noted and appeared clinically to be a C cup. The patient was then placed back in the supine position and the surgical clips were removed. The breast wounds were then irrigated with Irrisept 0.05% Chlorhexidine solution which was followed by saline irrigation. Hemostasis was obtained using electrocautery. The tissue removed from the left breast was 612 grams. The tissue removed from the right breast was 626 grams. The tissue that was removed from the breasts was sent to Pathology for analysis to rule out carcinoma. After hemostasis was obtained using electrocautery, I then sprayed Jeanette absorbable hemostat into both breast wounds. I used two vials for each side. I then placed a size 15 Zhao drain into each breast wound to be brought through the lateral aspect of the horizontal incision. I then closed the breast wounds by first approximating the leading edge of the medial and lateral breast flaps to the midline of the inframammary fold with 2-0 Vicryl suture. I then placed AmnioFix placental connective tissue graft into both wounds at the level of the Tzone to help with the healing process. I used 7 x 6 cm for each Tzone. The deep dermis and subcutaneous tissue of the vertical incision and the horizontal incisions were approximated using 3-0 Monocryl interrupted sutures. The horizontal incision was then approximated using 4-0 V-Loc unidirectional barbed running subcuticular suture. I also placed a few 4-0 Prolene vertical mattress interrupted sutures at the level of the Tzone. The vertical incision was then closed on the skin with 4-0 Prolene interrupted sutures. With a vertical limb length of 4.5 cm, I vasu a circular incision where the nipple-areolar complex would be brought through this keyhole incision. Incisions were made and the nipple areolar complex was brought through the keyhole incision. The nipple- areolar complex was secured to the breast skin using 3-0 Monocryl interrupted sutures for deep dermis and subcutaneous tissue. The skin was approximated using 4-0 Prolene simple interrupted sutures. This was then covered with Histoacryl skin tissue adhesive. I sutured the drains to the skin using 3-0 nylon suture. At the end of the procedure, the breasts were soft and symmetrical with no evidence of vascular compromise. No evidence of hematomas were noted. The nipples were viable. I then dressed the breasts with a Kerlix gauze and a compression michelle wrap. Then patient tolerated the procedure well and will be sent to the recovery room in satisfactory condition. She will be admitted for surgical observation overnight stay. She will go home tomorrow once she is tolerating oral pain medication. I will remove the drains in a few days. She will keep her head elevated during the initial postoperative period. She will be maintained on a lifting restriction and keep her head elevated during the initial postoperative period. Post-discharge, she may get a compression sports bra as well. She will have the Patel removed in the morning. She will be sent home on antibiotics and pain medicine. Sutures will be removed in 1-2 weeks. Grafts/Implants Used: AmnioFix placental connective tissue graft x2, Jeanette. Complications None. Admit VTE Documentation VTE Present on Admission: No VTE Mechan Device Prophylaxis: SCD's VTE Pharm Prophylaxis ordered?: Yes Addendum Addendum: Surgery Charges CPT - 11919 ICD-10 - N62, M54.2, M54.6, M25.519, L30.4, Z80.3, F17.200 [id number] N62, M54.2, M54.6, M25.519, L30.4, Z80.3, F17.200
[2021-05-02] MEDS: Ensure Surgery 237 ML LIQUID PO (18:27)
[2021-05-02] MEDS: Gabapentin 100 MG Capsule 200 MG PO (18:27)
[2021-05-02] MEDS: oxyCODONE 5 MG Tablet PO (21:31)
[2021-05-02] MEDS: Docusate Sodium 100 MG Capsule PO (21:32)
[2021-05-02] MEDS: Lactated Ringers 1,000 ML 60 ML IV (23:33)
[2021-05-03] VITALS (9 sets, daily range): BP systolic 91–103; BP diastolic 40–60; PULSE 94–98; RESP 16–18; TEMP 36.9–37.6; O2SAT 94–99
[2021-05-03] MEDS: oxyCODONE 5 MG Tablet PO ×3 (01:28→13:25)
[2021-05-03] MEDS: Acetaminophen 500 MG Tablet 1000 MG PO ×2 (06:19→12:52)
[2021-05-03 06:38] LABS: Hematocrit 28.3 % (37-47); Mean Corp Hgb Conc 31.8 g/dL (32-36); Mean Corpuscular Hgb 29.9 pg (27.0-32.0); Mean Platelet Vol. 10.7 fl (6.2-12.0); Platelet Count 317 K/mm3 (150-450); RBC Distribution Width CV 13.6 % (11.6-14.6); RBC Distribution Width SD 47.1 fl (35.1-43.9); Red Blood Count 3.01 M/mm3 (4.2-5.4); White Blood Count 13.2 K/mm3 (4.4-11.0)
[2021-05-03 07:02] LABS: Anion Gap 2 (5-15); BUN 11 mg/dL (7-18); BUN/Creat Ratio 14.3 RATIO (10-20); Calcium,Total 7.6 mg/dL (8.5-10.1); Chloride 107 mmol/L (98-107); Creatinine, Serum 0.77 mg/dL (0.55-1.02); EST Glomerular Filtration Rate 87 mL/min (>60); Est Glom Filt Rate - Afr Amer 105 mL/min (>60); Estimated Creatinine Clearance 74.51 ml/min; Glucose 124 mg/dL (74-106); Potassium 3.9 mmol/L (3.5-5.1); Sodium Level 138 mmol/L (136-145)
[2021-05-03] MEDS: 0.9% Normal Saline 1,000 ML 1 ML IV (07:43)
[2021-05-03] MEDS: Gabapentin 100 MG Capsule 200 MG PO ×3 (08:00→16:37)
[2021-05-03] MEDS: Ensure Surgery 237 ML LIQUID PO (08:00)
[2021-05-03] MEDS: Docusate Sodium 100 MG Capsule PO (08:01)
[2021-05-03] MEDS: Enoxaparin 40 MG/0.4 ML Syringe SC (09:48)
--- NOTE | 2021-05-03 15:06 | PCM.PN.SRG ---
Subjective Subjective Postop #1 Patient is doing well. She is sitting up in bed. She states her pain is well controlled. She is ready to go home. Objective Data Objective Data Vital Signs: Vital Signs Temp Pulse Resp BP Pulse Ox 99.3 F H 94 18 103/54 L 96 05/03/21 11:58 05/03/21 11:58 05/03/21 11:58 05/03/21 11:58 05/03/21 11:58 Oxygen Flow Rate (L/min) 2 Oxygen Delivery Method Room Air Weight: 190 lb 0.615 oz Body Mass Index (BMI) 34.2 Intake & Output: Intake and Output for Last 24 Hours 05/01/21 05/02/21 05/03/21 23:59 23:59 23:59 Intake Total 2211.5 / 2911.5 3765.69 / 3765.69 Output Total 1250 / 1550 1647 / 1647 Balance 961.5 / 1361.5 2118.69 / 2118.69 Zhao drains: Right breast 90 ml Left breast 65 ml Lab / Micro Data Result Diagrams: 05/03/21 05:50 05/03/21 05:50 Labs: Laboratory Results - last 24 hr 05/03/21 05:50: WBC 13.2 H, RBC 3.01 L, Hgb 9.0 L, Hct 28.3 L, MCV 94.0, MCH 29.9, MCHC 31.8 L, RDW Std Deviation 47.1 H, RDW Coeff of Mars 13.6, Plt Count 317, MPV 10.7 05/03/21 05:50: Sodium 138, Potassium 3.9, Chloride 107, Carbon Dioxide 29.0, Anion Gap 2 L, BUN 11, Creatinine 0.77, Estim Creat Clear Calc 74.51, Est GFR (MDRD) Af Amer 105, Est GFR (MDRD) Non-Af 87, BUN/Creatinine Ratio 14.3, Glucose 124 H, Calcium 7.6 L Micro: Microbiology 05/01/21 10:00 Interface Orders SARS-CoV-2 Antigen (Rapid) - Final Physical Exam Const oriented x3 and no apparent distress HEENT normocephalic Resp normal respiratory effort Cardio regular rate GI soft to palpation and non-tender Extremity full ROM Skin Wound Narrative: Incisions and sutures are dry and intact. Nipples are viable. Breasts are symmetrical with no hematoma. Bruising is present over the horizontal incision and midline between breasts. Zhao drains intact draining serosanguineous drainage. Neuro oriented x3 and CN's II-XII intact bilaterally Psych mental status grossly normal Assessment & Plan Assessment/Plan (1) Macromastia: (2) Chronic neck pain: (3) Chronic thoracic back pain: (4) Shoulder pain: (5) Intertrigo: (6) Acute postoperative anemia due to expected blood loss: (7) Other acute postprocedural pain: (8) Smoker: (9) Family history of breast cancer: PLAN: Patient's pain is well controlled on oral pain meds. Incisions and sutures are dry and intact. Breasts are soft and symmetrical, no signs of bleeding. Hgb 9.0. Acute postop anemia due to expected blood loss. Will start her on Iron supplementation. Will recheck Hgb in 1-2 weeks. Instructed patient to keep a log of her drainage from her Zhao drains. Instructed her to keep her head elevated and lifting restriction of 20 lbs. Wear compression at all times. Encouraged increase in protein intake to help with wound healing. Follow up in office next week to have drains removed. Charges/Coding Procedures Integumentary [id number]: [id number] Global Visit
--- NOTE | 2021-05-03 15:16 | PCM.DC ---
Discharge Instructions Diet Discharge Diet: No restrictions Activity Discharge Activity: May Not Shower (until the drains are removed) May resume sexual activity in: No Restrictions Weight Bearing Status: Weight bearing as tolerated Lifting Restrictions: 20 lb Additional Activity Instructions:: Keep head elevated. Dressing / Incision Call your doctor if your incision/area has: Continuous Slow Oozing, Sudden Increased Bleeding, Increased Pain/ Swelling, Increased Redness, Foul Smelling Discharge and Swelling at the incision site Call your doctor if you observe: Fever of 101 or Higher, Inability to have a bowel movement, Shortness of breath, Chest pain and Calf discomfort Change Dressing in: 1 day Cleanse incision/area with: Keep Dressing Clean & Dry Drain: Suction Additional Dressing/Incision Instructions:: Change dressing as needed. Keep clean and dry. Keep a log of drainage from drains. Follow Up Care Please Follow Up With: Dr. Ruiz When: Friday05/07/21 at 3:00 pm. Call if this appointment does not work. [phone] Test Results: Test results from this visit will be discussed in further detail at your follow-up appointment, if applicable. Discharge Plan Admission Admit Date/Time: 05/02/21 15:56 Primary Reason for Your Visit: surgery Attending Provider: Faizan Ruiz Primary Care Provider: German Sanchez Instructions Patient Instructions: Breast Reduction Surgery Discharge Orders/Prescriptions Prescriptions: New docusate sodium [DOK] 100 mg Capsule 100 mg PO BID 15 Days Qty: 30 RF: 0 ferrous sulfate [Iron (ferrous sulfate)] 325 mg (65 mg iron) tablet 325 mg PO DAILY 30 Days Qty: 30 RF: 0 oxycodone-acetaminophen [Percocet] 5-325 mg tablet 1 tab PO Q4H PRN (Reason: pain (scale score 7-10)) 7 Days Qty: 40 RF: 0 doxycycline hyclate 100 mg capsule 100 mg PO BID 14 Days Qty: 28 RF: 0 Continued mecobalamin (vitamin B12) 10,000 mcg recon soln 5,000 mcg SC .q week RF: 0 Discontinued diazepam [Valium] 5 mg tablet 5 mg PO QHS PRN (Reason: anxiety) Qty: 5 RF: 0 Referrals / Follow Up: German Sanchez MD [Primary Care Provider] - Disposition Disposition (needs filled in before D/C Order can be placed): Home, Self Care
[2021-05-03 19:06] LABS: Prealbumin 12.6 mg/dL (20.0-40.0)
== END 2021-05-03 18:50 | disposition home or self-care (01) ==
LOC: SDC 15:58 → MS3 15:58
PROVIDERS: Anesthesiology; Admitting Provider Surgery; PCP Family Medicine; Referring Provider Surgery; Visit Provider Surgery
PROC: 0H0U0ZZ Alteration of Left Breast, Open Approach (ICD-10-PCS; CPT 19318; principal; 2021-05-02 08:15)
DX: N62 Hypertrophy of breast (principal); M54.6 Pain in thoracic spine; L30.4 Erythema intertrigo; M25.511 Pain in right shoulder; M25.512 Pain in left shoulder; M54.2 Cervicalgia; Z79.899 Other long term (current) drug therapy; Z80.3 Family history of malignant neoplasm of breast; K21.9 Gastro-esophageal reflux disease without esophagitis; F41.9 Anxiety disorder, unspecified; F17.210 Nicotine dependence, cigarettes, uncomplicated
CPT/HCPCS: 19318; 36415; 80048; 81025; 82962; 83735; 84134; 85027; 87426; 88305; 93005; 94762; 96361; 96365; 96366; 96372; 99218; 99251; 99406; C9803; J7030; J7040; J7120; G0378; G0463; J2405; Q9968

== ENCOUNTER → 2021-05-22 13:52 | Outpatient (CLI) | payer OTHER, SELFPAY ==
[2021-05-15 13:31] VITALS: BMI 34.2
== END ==
PROVIDERS: PCP Family Medicine; Referring Provider Family Medicine; Visit Provider Surgery
DX: D62 Acute posthemorrhagic anemia (principal); Z98.890 Other specified postprocedural states
CPT/HCPCS: 36415; 85018

== ENCOUNTER → 2021-06-13 | Outpatient (CLI) | payer OTHER, SELFPAY | END | disposition home or self-care (01) | LOC: LABSPEC 10:44 | PROVIDERS: PCP Family Medicine; Visit Provider Nurse Practitioner Family | DX: T81.89XA Other complications of procedures, not elsewhere classified, initial encounter (principal); Z98.890 Other specified postprocedural states | CPT/HCPCS: 87070; 87075; 87077; 87186; 87205 ==

== ENCOUNTER → 2021-09-27 08:33 | Outpatient (CLI) | payer OTHER, SELFPAY ==
[2021-09-27 10:52] LABS: Anion Gap 6 (5-15); BUN 12 mg/dL (7-18); Calcium,Total 9.1 mg/dL (8.5-10.1); Chloride 107 mmol/L (98-107); Creatinine, Serum 0.75 mg/dL (0.55-1.02); EST Glomerular Filtration Rate 90 mL/min (>60); Est Glom Filt Rate - Afr Amer 108 mL/min (>60); Glucose 101 mg/dL (74-106); Potassium 3.7 mmol/L (3.5-5.1); Sodium Level 139 mmol/L (136-145); Thyroid Stim Hormone (TSH) 0.99 uIU/mL (0.358-3.74)
[2021-09-27 10:56] LABS: Vitamin D,25 Hydroxy 17.3 ng/mL
[2021-09-27 11:23] LABS: Hemoglobin A1c 5.5 % (3.8-5.6)
== END ==
PROVIDERS: PCP Family Medicine; Referring Provider Family Medicine; Visit Provider Family Medicine
DX: R53.83 Other fatigue (principal); R73.01 Impaired fasting glucose
CPT/HCPCS: 36415; 80048; 82306; 83036; 84443

== ENCOUNTER 2021-10-19 14:12 | Outpatient (CLI) | payer OTHER, SELFPAY ==
--- NOTE | 2021-10-19 14:31 | US_ITS ---
STUDY: ULTRASOUND BREAST - RIGHT REASON FOR EXAM: Female, 45 years old. Right breast pain and firmness. The patient is status post bilateral breast reduction surgery. TECHNIQUE: Axial and longitudinal images of the RIGHT breast were performed with a high resolution ultrasound transducer. # OF IMAGES: 11 COMPARISON: Comparison is made with prior mammogram dated 10/19/2021 and prior ultrasound of the right breast dated 05/13/2008. FINDINGS: RIGHT Breast: At the 10 o''clock position of the breast at 2 cm from nipple, there is a 3.3 cm x 3 cm x 1.5 cm hypoechoic nodular density with posterior acoustical shadowing. This corresponds to the patient''s palpable abnormality. This may represent postoperative change although a biopsy is recommended. US/Breast Limited Unilateral IMPRESSION: The papillotomy amount was projected 3.3 cm x 3 cm x 1.5 cm hypoechoic nodular density with posterior acoustical shadowing at the 10 o''clock position of the breast at 2 cm from nipple. Biopsy is recommended for further evaluation. ASSESSMENT CATEGORY: BIRADS Category 4: Suspicious - Biopsy Should Be Considered. A letter regarding these results will be sent to the patient by the facility within 30 days. Electronically Signed: Kvng Brumfield MD at 7:33 EST , Service support ,
--- NOTE | 2021-10-19 14:31 | BI_ITS ---
MAMMOGRAPHY - BILATERAL DIAGNOSTIC REASON FOR EXAM: Female, 45 years old. Recent bilateral breast reduction surgery. Palpable lump in the upper outer quadrant of the right breast. PERTINENT HISTORY: Non-contributory. TECHNIQUE: Digital bilateral breast arsalan (3D mammographic acquisition) in the CC and MLO projections. 2-D mediolateral oblique (MLO) and craniocaudad (CC) views of both breasts were obtained. CAD: Full Field Digital Mammography with Computer Added Detection was performed. COMPARISON: Comparison is made with prior mammogram dated 07/07/2020 and 06/30/2019. FINDINGS: Breast Composition: The breasts are heterogeneously dense, which may obscure small masses. The patient is status post bilateral breast reduction surgery. Postsurgical changes are seen. Stable benign-appearing bilateral axillary lymph nodes. No other significant abnormalities are identified. BI/DIAG MAMM W/CAD, BILAT IMPRESSION: Status post bilateral breast reduction surgery with postoperative changes. With the history of a palpable lump in the region of the right areola, correlation with targeted ultrasound is recommended. ASSESSMENT CATEGORY: BIRADS Category 0: Incomplete. Need additional imaging evaluation. A letter regarding these results will be sent to the patient by the facility within 30 days. Approximately 10% of breast cancers are not detected by mammography. A normal mammogram should not delay biopsy of a clinically suspicious abnormality. Electronically Signed: Kvng Brumfield MD at 15:16 EST , Service support ,
== END 2021-10-19 23:59 | disposition short-term general hospital (02) ==
LOC: OPBI 14:29
PROVIDERS: PCP Family Medicine; Referring Provider Nurse Practitioner Family; Visit Provider Nurse Practitioner Family
DX: N64.4 Mastodynia (principal); Z98.890 Other specified postprocedural states; N63.10 Unspecified lump in the right breast, unspecified quadrant
CPT/HCPCS: 76642; 77062; 77066; G0279

== ENCOUNTER 2021-11-27 20:00 | Outpatient (CLI) | payer OTHER, SELFPAY | END 2021-11-27 23:59 | disposition home or self-care (01) | PROVIDERS: PCP Family Medicine; Visit Provider Family Medicine | DX: G47.30 Sleep apnea, unspecified (principal) | CPT/HCPCS: 95810 ==

== ENCOUNTER 2021-12-05 14:02 | Outpatient (CLI) | payer OTHER, SELFPAY ==
--- NOTE | 2021-12-05 | IMM_PTH ---
PATIENT: NURA ORTIZ LOC: OPUS U#:[id number] AGE/SX: 46/F ROOM: RE12/05/[address]: Dr. Chary Christiansen MD : 1975 BED: DIS: 12/05/2021 SPEC #: [id number] RECD: 12/07/21 13:33 STATUS: MAHI RELilly #: [id number] NELSON: 12/05/21 00:[address]: Chary Christiansen DEPT: IMMUNOHISTOCHEMISTRY RECD BY: mAber Clark ENTERED: 12/07/21 13:34 SP TYPE: IMMUNO OTHR DR: Dr. Jose Roberto Sanchez MD Tissues: Right breast, NOS Procedures: CK8 (add) KI-67 (add) MACRO (add) P53 (add) Vimentin (add) Pankeratin (initial) PHYSICIAN & INSTITUTION [place] [id number] SPECIMEN INFORMATION: Tissue Source: Right breast Clinical Info: Right breast mass, 10 o?clock, 2 cm from nipple Specimen Number: [id number] CPT code: 86113, 48458 x5 METHODOLOGY: Deparaffinized sections of prefer/formalin-fixed tissue or PAP/DQ stained slides are incubated with monoclonal/polyclonal antibodies/oligonucleotide probes. Localization is made via biotin free immunoperoxidase method. Appropriate controls are performed and reacted as expected. Results on target cell population are indicated in the following table: RESULTS: ANTIBODY / CLONE RESULT AE1-3 (AE1/AE3/PCK26) negative CK8 ([id number]) negative Vimentin (V9) positive Macro (HAM-56) positive P53 (DO-7) negative Ki-67 (30-9) positive, low These tests were developed and their performance characteristics determined by [facility]. They may not have been cleared or approved by the U.S. Food and Drug Administration. The FDA has determined that such clearance or approval is not necessary. The above immunohistochemical/dualISH markers are ordered and reviewed by the Pathologist. INTERPRETATION: Right breast, ultrasound-guided core biopsy: Benign breast tissue with fat necrosis. AM:ange 12/10/2021
--- NOTE | 2021-12-05 | BRBX_PTH ---
PATIENT: NURA ORTIZ LOC: OPUS U#:[id number] AGE/SX: 46/F ROOM: RE12/05/[address]: Dr. Chary Christiansen MD : 1975 BED: DIS: 12/05/2021 SPEC #: [id number] RECD: 12/05/21 15:11 STATUS: MAHI RELilly #: [id number] NELSON: 12/05/21 00:[address]: Chary Christiansen DEPT: SURGICAL PATHOLOGY RECD BY: Leo Prather ENTERED: 12/06/21 12:00 SP TYPE: BREAST BX DELLA DR: Dr. Jose Roberto Sanchez MD Tissues: Right breast, NOS Procedures: Surgery Specimen Level IV HEADER OPERATION: Ultrasound-guided right breast biopsy PRE-OP DIAGNOSIS: Right breast mass TISSUE SUBMITTED: Right breast mass 3.3 x 3 x 1.5 cm, 10 o?clock, 2 cm from nipple ISCHEMIC TIME: 1 minute FIXATION TIME: 29 hours MICROSCOPIC DIAGNOSIS Right breast mass, ultrasound-guided core biopsy: Fat necrosis with associated reparative and reactive change. No evidence of malignancy. See comment. AM:ange 12/07/2021 COMMENT Immunohistochemistry ([id number]) supports the above diagnosis. Case has been reviewed in consultation with Dr. Cerda who concurs with the above diagnosis. SHEYLA:DINORAH MICROSCOPIC DESCRIPTION Slides are reviewed. GROSS DESCRIPTION Received in fixative is one container labeled with the patient's name and designated right breast. The specimen consists of multiple elongated fragments of brink-yellow fibroadipose tissue that in aggregate measure 1.5 x 0.5 x 0.1 cm. The entire specimen is submitted in one cassette. / DINORAH:ange 12/06/2021 TC:5 CPT: 72312
--- NOTE | 2021-12-05 14:05 | US_ITS ---
STUDY: ULTRASOUND BREAST - RIGHT REASON FOR EXAM: Female, 46 years old. Ultrasound guided right breast biopsy. TECHNIQUE: Axial and longitudinal images of the RIGHT breast were performed with a high resolution ultrasound transducer. # OF IMAGES: 25 COMPARISON: Comparison is made with prior study dated 04/18/2022. FINDINGS: RIGHT Breast: The surgeon performed for biopsies of the 3.1 cm x 3.1 cm by 1.4 cm irregular soft tissue nodule at the 10 o''clock position in the breast at 2 cm from nipple. US/US Breast Biopsy 1st Lesion IMPRESSION: Ultrasound guided breast biopsy. ASSESSMENT CATEGORY: BIRADS Category 2: Benign. A letter regarding these results will be sent to the patient by the facility within 30 days. Electronically Signed: Kvng Brumfield MD at 14:37 EST ,
--- NOTE | 2021-12-05 14:17 | PCM.OPRPT ---
Report of Operation Date of Procedure: 12/05/21 Pre-Operative Diagnosis: Right breast mass Post-Operative Diagnosis: same Surgery/Procedure Performed:: Ultrasound guided right breast core biopsy Surgeon: Chary Christiansen Type of Anesthesia: Local Specimen's removed: 1. right breast mass 10:00 2 cm FTN Description of Procedure: Indications: 46 year-old female with hypoechoic nodule at 10:00 in the right breast 2 centimeters from the nipple. Risk benefits were discussed the patient and she elected to proceed with ultrasound guided core biopsy with clip placement. Description of procedure: Patient was brought into the ultrasound room in the right breast was marked. A timeout was completed verifying correct patient, procedure, site, specially, prior to beginning procedure. The right breast was prepped and draped in usual sterile fashion and using local anesthesia was obtained with 1% lidocaine with epi. The lesion was located with the ultrasound. Small incision was made with 11 blade to introduced the BARD Maxcore through the skin. Under ultrasound guidance multiple core samples were obtained using then 14-gauge BARD MaxCore and sent in formalin for pathology. The BARD dual ultra-ribbon clip was then deployed into the biopsy cavity under ultrasound guidance and a picture was taken. Upon completion procedure hemostasis was obtained and a Steri-Strip and OpSite were placed. Patient was then taken to the mammography suite for clip verification. The clip was verified. The patient tolerated the procedure well and was discharged from the breast imaging department good condition. Complications none
== END 2021-12-05 23:59 | disposition home or self-care (01) ==
LOC: OPUS 14:03
PROVIDERS: PCP Family Medicine; Visit Provider Surgery
DX: N63.11 Unspecified lump in the right breast, upper outer quadrant (principal); N64.1 Fat necrosis of breast
CPT/HCPCS: 19083; 88305; 88341; 88342

== ENCOUNTER 2022-01-18 20:41 | Outpatient (CLI) | payer OTHER, SELFPAY | END 2022-01-18 23:59 | disposition home or self-care (01) | LOC: SL 20:41 | PROVIDERS: PCP Family Medicine; Visit Provider Nurse Practitioner Acute Care | DX: G47.33 Obstructive sleep apnea (adult) (pediatric) (principal) | CPT/HCPCS: 95811 ==

== ENCOUNTER → 2022-07-17 | Outpatient (CLI) | payer OTHER, SELFPAY ==
[2022-07-17 13:50] LABS: Estradiol 77.4 pg/mL; Ferritin 40 ng/mL (8-252); Follicle Stimulating Hormone 4.7 mIU/mL; Iron 53 ug/dL (50-170); Luteinizing Hormone 4.4 mIU/mL; Thyroid Stim Hormone (TSH) 1.23 uIU/mL (0.358-3.74)
[2022-07-17 13:59] LABS: Vitamin B12 393 pg/mL (211-911); Vitamin D,25 Hydroxy 15.3 ng/mL
== END | disposition home or self-care (01) ==
PROVIDERS: PCP Family Medicine; Referring Provider Family Medicine; Visit Provider Family Medicine
DX: R53.83 Other fatigue (principal); D64.9 Anemia, unspecified; E53.8 Deficiency of other specified B group vitamins; E55.9 Vitamin D deficiency, unspecified
CPT/HCPCS: 36415; 82306; 82607; 82670; 82728; 83001; 83002; 83540; 84443

== ENCOUNTER → 2022-08-07 | Outpatient (CLI) | payer OTHER, SELFPAY ==
[2022-08-07 09:19] LABS: Absolute Lymphocyte Count 1.85 X10^3/uL (0.83-4.51); Absolute Neutrophil Count 5.1 X10^3/uL (2.0-7.7); Basophil# 0.04 X10^3/uL; Basophil% 0.5 % (0-1); Eosinophil# 0.05 X10^3/uL; Eosinophils% 0.7 % (0-5); Hematocrit 38.1 % (37-47); Hemoglobin 12.4 g/dL (12.0-15.0); Lymphocyte # 1.85 X10^3/ul (0.83-4.51); Lymphocyte % 24.8 % (19-41); Mean Corp Hgb Conc 32.5 g/dL (32-36); Mean Corpuscular Hgb 30.3 pg (27.0-32.0); Mean Corpuscular Volume 93.2 fL (81-99); Mean Platelet Vol. 10.6 fl (6.2-12.0); Monocyte# 0.43 X10^3/uL; Monocyte% 5.8 % (0-10); NRBC Flagged by Analyzer 0 % (0-5); Neutrophil # 5.06 X10^3/uL (2.7-7.7); Neutrophil % 67.8 % (47-70); Platelet Count 354 K/mm3 (150-450); RBC Distribution Width CV 13.4 % (11.6-14.6); RBC Distribution Width SD 45.7 fl (35.1-43.9); Red Blood Count 4.09 M/mm3 (4.2-5.4); White Blood Count 7.5 K/mm3 (4.4-11.0)
[2022-08-07 09:53] LABS: ALB/GLOB Ratio 0.9 RATIO (0.9-2.4); AST(SGOT) 8 U/L (15-37); Alanine Aminotransfer ALT/SGPT 16 U/L (13-56); Albumin, Serum 3.6 g/dL (3.2-5.0); Alkaline Phosphatase 68 U/L (45-117); Anion Gap 7 (5-15); BUN 15 mg/dL (7-18); Calcium,Total 8.9 mg/dL (8.5-10.1); Chloride 108 mmol/L (98-107); Creatinine, Serum 0.83 mg/dL (0.55-1.02); EST Glomerular Filtration Rate 79 mL/min (>60); Est Glom Filt Rate - Afr Amer 95 mL/min (>60); Globulin 3.8 g/dL (2.2-4.2); Glucose 107 mg/dL (74-106); Potassium 3.7 mmol/L (3.5-5.1); Protein, Total 7.4 g/dL (6.4-8.2); Sodium Level 140 mmol/L (136-145); Thyroid Stim Hormone (TSH) 1.24 uIU/mL (0.358-3.74)
[2022-08-07 10:10] LABS: Hemoglobin A1c 5.5 % (3.8-5.6)
== END | disposition home or self-care (01) ==
LOC: LAB 08:56
PROVIDERS: PCP Family Medicine
DX: E34.9 Endocrine disorder, unspecified (principal); E55.9 Vitamin D deficiency, unspecified; E66.3 Overweight
CPT/HCPCS: 36415; 80053; 83036; 84443; 85025

== ENCOUNTER → 2023-07-04 | Outpatient (CLI) | payer OTHER, SELFPAY | END | disposition home or self-care (01) | LOC: SL 09:24 | PROVIDERS: PCP Family Medicine; Visit Provider Nurse Practitioner Acute Care | DX: Z00.00 Encounter for general adult medical examination without abnormal findings (principal) ==

== ENCOUNTER → 2023-10-22 | Outpatient (CLI) | payer OTHER, SELFPAY ==
--- NOTE | 2023-10-22 09:50 | BI_ITS ---
MAMMOGRAPHY - BILATERAL SCREENING REASON FOR EXAM: Female, 47 years old. Routine annual screening examination. PERTINENT HISTORY: Non-contributory. Prior right ultrasound-guided breast biopsy. Prior bilateral breast reduction surgery. TECHNIQUE: Digital bilateral breast jai (3D mammographic acquisition) in the CC and MLO projections. 2-D mediolateral oblique (MLO) and craniocaudad (CC) views of both breasts were obtained. CAD: Full Field Digital Mammography with Computer Added Detection was performed. COMPARISON: Comparison is made with prior study dated April 18, 2022 and July 07, 2020. FINDINGS: Breast Composition: The breasts are heterogeneously dense, which may obscure small masses. There are no dominant masses or suspicious calcifications. A tissue clip marker is seen in the lateral retroareolar region of the right breast. No other significant abnormalities are identified. BI/SCRN MAMM (CAD)W/JAI BILAT IMPRESSION: Stable bilateral screening mammogram. Yearly follow-up mammogram recommended. (A) ASSESSMENT CATEGORY: BIRADS Category 2: Benign. A letter regarding these results will be sent to the patient by the facility within 30 days. Approximately 10% of breast cancers are not detected by mammography. A normal mammogram should not delay biopsy of a clinically suspicious abnormality. [id number] Electronically Signed: Kvng Brumfield MD at 8:38 EST ,
--- OUTSIDE RECORDS SUMMARY | 2023-10-22 10:15 | XMS RPT_ITS | CCD ---
Author Name Unknown Address [address] [place], [place] [id number] Organization [facility] Care Team Providers Care Signal Fitter Name Role Phone DanielJose Roberto Unavailable [phone] Luana Jeter Unavailable Unavailabl e Medications Current Medications Medication Drug Class(es) Dates Sig (Normalized) Sig (Original) cephalexin 500 mg oral capsule (1 source) Cephalosporin Antibacterial Start: 09-13-2021 End: 09-22-2021 take 1 capsule by mouth every six hours cephalexin 500 mg oral capsule ; 1 cap(s) orally every 6 hours x 10 days Quantity: 40 Refills: 0 Ordered: 13-Sep-2021 Luana Jeter Start: 13-Sep-2021 End: 22-Sep-2021 Generic Substitution Allowed Comments: Finish all this medication unless otherwise directed by prescriber. Problems Problem Classification Problem Date Documented Da te Episodic/Chronic Inflammatory diseases of female pelvic organs (1 source) Abscess of labia; Translations: [Other abscess of vulva] 09-13-2021 Episodic Unclassified (2 sources) VAGINAL ISSUE 09-13-2021 Results Test Name Value Interpretation Reference Range Facil ity Vital Signs Date Time Vital Sign Value Performing Clinician Yoselin litgeovany 09-13-2021 16:58-0500 Diastolic blood pressure 74 mm[Hg] Jose Roberto Sanchez Other Phone: [facility] 09-13-2021 16:58-0500 Heart rate 95 /min Jose Roberto Sanchez Other Phone: [facility] 09-13-2021 16:58-0500 Respiratory rate 18 /min Jose Roberto Sanchez Other Phone: [facility] 09-13-2021 16:58-0500 SaO2% (BldA) [Mass fraction] 95 % Jose Roberto Sanchez Other Phone: [facility] 09-13-2021 16:58-0500 Systolic blood pressure 124 mm[Hg] Jose Roberto Sanchez Other Phone: [facility] 09-13-2021 13:06-0500 Body height 160 cm Jose Roberto Sanchez Other Phone: [facility] 09-13-2021 13:06-0500 Body temperature 98.24 [degF] Jose Roberto Sanchez Other Phone: [facility] 09-13-2021 13:06-0500 Body weight 84 kg Jose Roberto Sanchez Other Phone: [facility] Encounters Encounter Date Encounter Type Care Provider Facility Start: 09-13-2021 End: 09-13-2021 Emergency department patient visit Luana Jeter [facility] Emergency 03 Payers Date Payer Category Payer Policy ID Unknown [facility] Social History Date Type Detail Facility [facility] Tobacco smoking consumption unknown [facility] Summary Purpose Family History No Family History Records Found Advance Directives No Advanced Directives Records Found Additional Source Comments <item> Privacy Markings (unrecogniz ed section and content) Section Author: Samaria Kelley PROHIBITION ON REDISCLOSURE OF CONFIDENTIAL INFORMATION This notice accompanies a disclosure of information concerning a client made to you with the consent of such client. INFORMATION SOURCE (unrecogn ized section and content) FOR RECORDS PERTAINING TO PATIENTS WHO ARE OR HAVE BEEN ENROLLED IN A CHEMICAL DEPENDENCY/SUBSTANCEABUSE PROGRAM, SOME INFORMATION MAY BE OMITTED. This clinical summary was aggregated from multiple sources. Caution should be exercised in using it in the provision of clinical care. This summary normalizes information from multiple sources, and as a consequence, information in this document may materially change the coding, format and clinical context of patient data. In addition, data may be omitted in some cases. CLINICAL DECISIONS SHOULD BE BASED ON THE PRIMARY CLINICAL RECORDS. [facility]. provides no warranty or guarantee of the accuracy or completeness of information in this document.
== END | disposition home or self-care (01) ==
LOC: OPBI 09:50
PROVIDERS: PCP Family Medicine; Referring Provider Obstetrics & Gynecology; Visit Provider Obstetrics & Gynecology
DX: Z12.31 Encounter for screening mammogram for malignant neoplasm of breast (principal)
CPT/HCPCS: 77063; 77067

== ENCOUNTER → 2023-12-16 | Outpatient (CLI) | payer OTHER, SELFPAY ==
--- NOTE | 2023-12-16 09:45 | MRI_ITS ---
STUDY: BILATERAL BREAST MR WITHOUT AND WITH CONTRAST REASON FOR EXAM: Female, 48 years old. History of bilateral breast reduction surgery in the past. History of palpable superficial lumps in the right breast. Tenderness and sharp throbbing. History of biopsy of soft tissue nodules at the 10:00 position of the right breast 2 cm from the nipple. TECHNIQUE: Multi-sequence multi-echo imaging of both breasts was performed with a dedicated breast coil. T1-weighted and T2-weighted images were performed before the administration of contrast. T1-weighted images were also performed after the intravenous administration of 17 cc of Clariscan. COMPARISON: Bilateral screening mammograms dated 10/22/2023, 06/30/2019 and 05/20/2018. Limited right breast ultrasound dated 05/13/2018. FINDINGS: RIGHT BREAST: LEFT BREAST: Heterogeneously dense fibroglandular tissue with moderate to marked background enhancement. No abnormal enhancing masses or areas of non-mass enhancement in the right breast. There are no enlarged or abnormal lymph nodes. No abnormality in the visualized regions of the chest or liver. MRI/Breast Bilateral W/O and W IMPRESSION: Heterogeneously dense fibroglandular tissue with moderate to marked background enhancement. No focal abnormal enhancing lesions. 6 month follow-up bilateral mammogram and repeat right breast ultrasound would be appropriate since the patient had biopsies of the right breast. CATEGORY: BIRADS Category 3: Probably Benign - Short-Interval Follow-up Suggested. A letter regarding these results will be sent to the patient by the facility within 30 days. Electronically Signed: Adrian Cruz MD at 9:49 EDT ,
== END | disposition home or self-care (01) ==
LOC: MRI 09:42
PROVIDERS: PCP Family Medicine; Referring Provider Surgery; Visit Provider Surgery
DX: E03.9 Hypothyroidism, unspecified (principal); N18.31 Chronic kidney disease, stage 3a; E78.5 Hyperlipidemia, unspecified
CPT/HCPCS: 77049; A9575; A4216; C8908